=== PATIENT | male | born 1995 | race American Indian/Alaskan Native ===

== ENCOUNTER 2017-07-23 07:02 | Day surgery (SDC) | payer BC ==
[~2017-07-23 07:02] MED LIST: MARCAINE 0.25% INFILTRATI ONE; XYLOCAINE 1%/ EPI 1:100,000 INFILTRATI ONE
[2017-07-23] MEDS ORDERED: MARCAINE 0.25% INFILTRATI ONE (07:27)
[2017-07-23] MEDS ORDERED: ANTIBIOTIC OINT TP ONE (07:27)
[2017-07-23] MEDS ORDERED: XYLOCAINE 1%/ EPI 1:100,000 INFILTRATI ONE (07:28)
--- NOTE | 2017-07-23 08:34 | Anesthesia Day of Surgery ---
Anesthesia Day of Surgery - Day of Surgery Patient Examined: Yes Patient H&P Reviewed: Yes Patient is NPO: Yes
--- NOTE | 2017-07-23 08:34 | Anesthesia Consultation ---
Anesthesia Consult and Med Hx Date of service: 07/23/17 - Airway Anesthetic Teeth Evaluation: Good ROM Head & Neck: Adequate Mental/Hyoid Distance: Adequate Mallampati Class: Class I Intubation Access Assessment: Good - Pulmonary Exam CTA: Yes - Cardiac Exam Cardiac Exam: RRR - Pre-Operative Health Status ASA Pre-Surgery Classification: ASA2 Proposed Anesthetic Plan: General, MAC - Pulmonary Hx Smoking: Yes (1/4 A PACK A DAY) - Central Nervous System Hx Psychiatric Problems: No - Other Systems Hx Alcohol Use: No Hx Substance Use: No Hx Cancer: No - Additional Comments Anesthesia Medical History Comments: smoker. healthy otherwise
[2017-07-23] MEDS ORDERED: DILAUDID IV PRN (08:35)
--- NOTE | 2017-07-23 08:44 | Discharge Summary ---
Short Stay Discharge Plan Activity: no restrictions Weight Bearing Status: Full Weight Bearing Diet: regular Wound: remove dressing (72hrs) Additional Instructions: REMOVE DRESSING IN 72 HOURS. HOME WITH LICO DRAIN-EMPTY MEASURE AND RECORD INTAKE AND OUTPUT EVERY 4-6 HOURS AND NEEDED. Follow up with: CHERRIE ANAYA MD [Primary Care Provider] - 6 Weeks WORK,RIO Reardon JR, MD [Staff Physician] - 7 Days Forms: [facility] [place] [facility].
--- NOTE | 2017-07-23 08:46 | Short Stay Summary ---
Short Stay Documentation Date of service: 07/23/17 - Allergies and Medications Current Medications: Allergies No Known Allergies Allergy (Verified 04/23/17 16:54) Home Medications Medication Instructions Recorded Confirmed Last Taken Type No Known Home Medications [No 04/23/17 04/23/17 Unknown History Reported Home Medications] Active Medications Hydromorphone HCl (Dilaudid) 0.5 mg IV Q10MIN PRN PRN Reason: Pain , Severe (7-10) Stop: 07/23/17 13:00 Sodium Chloride (Nacl 0.9% 1000 Ml) 1,000 mls @ 100 mls/hr IV DIRECT NOHELIA Midazolam HCl (Versed) 2 mg IV PREOP NR Stop: 07/23/17 23:59 - Brief post op/procedure progress note Date of procedure: 07/23/17 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 HOME WITH LICO DRAIN-EMPTY MEASURE AND RECORD INTAKE AND OUTPUT EVERY 4-6 HOURS AND NEEDED. Follow up with: RIO WING JR, MD [Staff Physician] - 7 Days CHERRIE ANAYA MD [Primary Care Provider] - 6 Weeks Forms: [facility] [place] [facility].
[2017-07-23] MEDS ORDERED: NACL BACTERIOSTATIC INFILTRATI ONE (08:57)
[2017-07-23] MEDS ORDERED: VERSED IV NR (09:00)
[2017-07-23] MEDS ORDERED: ANCEF/STERILE WATER 2 GM/20 ML IV NR (09:00)
[2017-07-23] MEDS ORDERED: NACL 0.9% 1000 ML 1,000 ML IV SCH (09:00)
[2017-07-23 09:18] LABS: Hemoglobin 15.1 gm/dl (11.8-15.2); Mean Corpuscular HGB Conc 34 % (32-34); Mean Corpuscular Hemoglobin 28 pg (28-32); Mean Corpuscular Volume 84 fl (84-94); Platelet Count 218 K/mm3 (140-440); Red Blood Count 5.37 M/mm3 (3.65-5.03); Red Cell Distribution Width 14.6 % (13.2-15.2)
[2017-07-23] MEDS ORDERED: DIPRIVAN 10 MG/ML IV ONE ×2 (09:23→10:04)
[2017-07-23] MEDS ORDERED: SUBLIMAZE ONE (09:50)
[2017-07-23] MEDS ORDERED: XYLOCAINE MPF 2% ONE (10:00)
[2017-07-23] MEDS ORDERED: ZOFRAN ONE (10:09)
[2017-07-23] MEDS ORDERED: DECADRON ONE (10:09)
[2017-07-23 10:57] LABS: Band Neutrophils # (Manual) 0.1 K/mm3; Platelet Estimate Consistent w Auto; RBC Morphology Normal; Total Cells Counted 100
[2017-07-23 11:00] VITALS: BP 124/62
--- NOTE | 2017-07-23 11:57 | Operative Report ---
PREOPERATIVE DIAGNOSIS: Benign neoplasm of right shoulder. POSTOPERATIVE DIAGNOSIS: Benign neoplasm of right shoulder. PROCEDURE: 1. Excision of benign neoplasm of right shoulder greater than 4 cm. 2. Complex closure of right shoulder approximately 6 cm. SURGEON: Dejan Bennett MD. DESCRIPTION OF PROCEDURE: The patient was brought to the operating room and placed on the table in supine position. Following administration of IV sedation and local anesthesia, the right shoulder was prepped with Betadine solution, draped in usual sterile manner. A 10 blade scalpel was used to incise skin overlying the mass, deepened through subcutaneous fat plane using the electrocautery. A combination of sharp and blunt dissection was performed to circumferentially excise the tumor, which extended down into the muscle. Specimen sent to pathology as a specimen. Hemostasis controlled using electrocautery. A 10 mm round drain was placed deep to the closure performed using interrupted and running subcuticular 2-0 Monocryl sutures. Mastisol, Steri-Strips, and sterile dressings applied. The patient tolerated the procedure well and returned to recovery room in stable condition. JOB# [id number] FTW/NTS
--- NOTE | 2017-07-23 14:41 | Post Anesthesia Evaluation ---
- Post Anesthesia Evaluation Patient Participated: Yes Airway Patent: Yes Stable Respiratory Function: Yes Nausea/Vomiting: No Temp > 96.8F: Yes Pain Manageable: Yes Adequeate Hydration: Yes Anesthesia Complications: No
== END 2017-07-23 11:15 | disposition home or self-care (01) ==
LOC: OR 07:02
PROVIDERS: ATTEND Plastic Surgery
DX: D36.7 Benign neoplasm of other specified sites (principal); F17.210 Nicotine dependence, cigarettes, uncomplicated
CPT/HCPCS: 23071; 36415; 85007; 85025; 88304; J0690; J1100; J2250; J2405; J2704; J3010; J7030; 88305